=== PATIENT | female | born 1960 | race Caucasian/White ===

== ENCOUNTER 2023-11-05 23:22 | Emergency (ER) | payer OTHER, SELFPAY ==
[2023-11-05 23:22] VITALS: BMI 17.1
[2023-11-05 23:33] VITALS: BP 134/79
[2023-11-06 01:53] LABS: % Basophils 0.6 % (0-2); % Eosinophils 2.8 % (0-6); % Immature Granulocytes 0.2 % (0-0.5); % Monocytes 8.5 % (1.7-9.3); % Neutrophils 58.9 % (42.2-75.2); Absolute Eosinophils 0.2 10^3/uL (0-0.7); Absolute Lymphocytes 1.9 10^3/uL (1.2-3.4); Absolute Monocytes 0.6 10^3/uL (0.1-0.6); Absolute Neutrophils 3.8 10^3/uL (1.4-6.5); Hematocrit 38.7 % (37.0-47.0); Hemoglobin 13.6 g/dL (12.0-16.0); Mean Corp Hgb Conc. 35.1 g/dL (33.0-37.0); Mean Corpuscular Hgb 30.7 pg (27.0-31.0); Mean Corpuscular Volume 87.4 fL (81.0-99.0); Mean Platelet Volume 9.3 fL (7.4-10.4); Nucleated Red Blood Cells % 0 %; Platelet Count 253 10^3/uL (130-400); Red Blood Cell Count 4.43 10^6/uL (4.20-5.40); Red Cell Dist. Width 12.8 % (11.5-14.5); White Blood Cell Count 6.4 10^3/uL (4.8-10.8)
[2023-11-06 02:14] LABS: ALT (SGPT) 16 U/L (0-35); AST (SGOT) 25 U/L (14-36); Albumin 4.4 g/dl (3.5-5.0); Alkaline Phosphatase 71 U/L (38-126); Blood Urea Nitrogen 19 mg/dl (7-17); Calcium 9.5 mg/dl (8.4-10.2); Carbon Dioxide 25 mmol/L (22-30); Chloride 106 mmol/L (98-107); Glucose 103 mg/dl (70-99); Potassium 3.8 mmol/L (3.5-5.1); Sodium 143 mmol/L (135-145); Total Bilirubin 0.4 mg/dl (0.2-1.3); Total Protein 6.9 g/dl (6.3-8.2); eGFR > 60.00
[2023-11-06] MEDS: PROTONIX IV 40 MG IV (03:03)
[2023-11-06 03:04] LABS: Troponin I < 0.012 ng/ml
--- NOTE | 2023-11-06 03:25 | ED.GENMED ---
History of Present Illness
General
Chief Complaint: Chest Pain
Source: patient and previous hospital records
Exam Limitations: none
Time Seen by Provider: 11/06/23 02:27
Nursing documentation reviewed up to this point in time: agreed with
History of Present Illness
History of Present Illness:
This is a 63-year-old woman with history of migraine headaches, lumbar DJD, glaucoma and an episode of pneumonia in January 2023. Takes no medications on a daily basis other than eyedrops. She has been prescribed Robaxin by orthopedics,
[place] but admits to not taking this for low back pain.
She complains of 1 week history of waking each morning around 4:30 AM with acute epigastric to right upper quadrant pain accompanied with nausea without vomiting. She has not had a fever. She admits to decreased appetite but does not believe
abdominal pain is worse nor improved with meals. Occasional radiation of epigastric pain to her substernal area but she has not had a cough nor shortness of breath, no back pain, no palpitations, no dizziness nor lightheadedness. No history of
similar episodes in the past. She has had no diarrhea nor constipation, no dysuria and urgency and or hematuria.
She has been taking Excedrin sporadically throughout the week for pain prior to this week generally does not take [id number] pain medications. She denies significant NSAID use, denies EtOH use.
Past History
Past History
ED Past Medical History: Other (Glaucoma, lumbar DJD, pneumonia 2022, migraine headaches)
ED Past Surgical History: Appendectomy
Social History
Tobacco: Non-smoker
Alcohol: None
Drug: None
Personal: Other
Living: with family
Employment: Employed
Family History
Family History: Other (Noncontributory)
Phy Exam
Physical Exam
Physical Exam:
GENERAL: 63-year-old thin woman appears her stated age, awake and alert, appears mildly uncomfortable but easily communicative and cooperative.
EYE: pupils equal and reactive. anicteric
NECK: Supple, nontender, no meningismus, no significant adenopathy.
ENT: oral mucosa is minimally dry. No rhinorrhea.
CARDIAC: Regular rate and rhythm. no murmur.
LUNGS: Clear breath sounds bilaterally, no acute respiratory distress, no wheezes/rales/rhonchi
ABDOMEN: Soft, nondistended, mild tenderness epigastric as well as right upper quadrant, no r/g, no cvat. normoactive BS.
NEUROLOGICAL: Alert and oriented x3, no focal neuro deficits.
SKIN: Warm and dry, normal color, skin intact. No rash.
MUSCULOSKELETAL: No C/C/E. peripheral pulses are full and equal b/l. No palpable tenderness.
PSYCH: Normal and appropriate interaction.
Scores
Heart Score for Chest Pain Patients
STEMI patient?: No
History: Slightly or Non-Suspicious
ECG: Normal
Age: >45 - <65 years
Risk Factors: No Risk Factors
Troponin: </= Normal Limit
Heart Score for Chest Pain Patients: 1
Heart Score Risk: 2.5% MACE over next 6 weeks
Course
Orders/Labs/Results
Orders:
Orders
11/05/23 23:23
Electrocardiogram (*1) Urgent
Reason for Study: Chest Pain
EKG- Treatment ONCE
11/06/23 01:16
Electrocardiogram (*1) Urgent
Reason for Study: Chest Pain
Cardiac Monitoring- Treatment ONCE
EKG- Treatment ONCE
IV Insert/Care/Rem.- Treatment PRN
O2 Therapy [RESP] Urgent
Titrate/Wean O2 to maintain O2 sat greater than (%): 90
Special Instructions: Maintain sats >/=90%
Pulse Ox/spot Check [RESP] Urgent
Quantity: 1
Special Instructions: ON ROOM AIR
11/06/23 01:45
Complete Blood Count/With Diff Urgent
Comprehensive Metabolic Panel Urgent
Lipase Urgent
Comment: ADD ON
11/06/23 02:35
Troponin I Urgent
11/06/23 02:37
Add On- LAB Urgent
Tests Added?: lipase
11/06/23 02:54
Urinalysis Reflex To Culture Urgent
Pantoprazole [Protonix IV] 40 mg IV NOW STA
US Abdomen Complete/Upper Urgent
Comment:
Reason For Exam: 1 week hx epigastric RUQ pain
Abnormal Lab Results
11/06/23
01:45
BUN 19 H mg/dl
(7-17)
Glucose 103 H mg/dl
(70-99)
11/06/23 01:45
11/06/23 01:45
Vital Signs
Initial and Last Documented VS:
Initial Vital Signs
Temp Pulse Resp BP Pulse Ox
98.4 F 80 18 134/79 96
11/05/23 23:33 11/05/23 23:33 11/05/23 23:33 11/05/23 23:33 11/05/23 23:33
Last Documented Vital Signs
Temp Pulse Resp BP Pulse Ox
98.4 F 68 13 134/79 96
11/05/23 23:33 11/06/23 01:45 11/06/23 01:45 11/05/23 23:33 11/05/23 23:33
MDM/Problems Addressed
Differential Diagnosis Includes:
Concern for acute gastritis, biliary colic, cholecystitis, pancreatitis, GERD, ACS, diverticulitis, small bowel obstruction.
Thus far labs are unremarkable. Troponin is pending and will add lipase.
EKG shows normal sinus rhythm, minimally flipped T waves in lead III otherwise unremarkable.
No significant risk factors for CAD.
Will check abdominal ultrasound and will give an IV dose of Protonix.
Chronic conditions affecting care: Previous abdomnial surgery
*Radiology
Radiology exam reviewed: radiology read reviewed
*Pulse Oximetry
Patient hypoxic: no
*EKG
Interpreted by ED Provider?: Yes
Comparison EKG: changes noted (Previous T wave inversion laterally has since resolved)
Rate: normal
Rhythm: sinus
[place]: normal axis
Interval: normal interval
QRS Pattern: normal QRS
Ischemia: non-specific ST changes
*Heating Repair Technician Interpretation
Rate: normal
Interpretation: normal
Rhythm: sinus
*Critical Care Note
Total Time (30-74mins, 75-104mins- exclusive of procedures): Not Applicable
Update Note
Update Note:
11/06/2023 0432 AM
Patient reports complete relief of pain after IV Protonix.
Lipase is normal.
Troponin is negative. With ongoing primarily epigastric discomfort over the past week, negative troponin, ACS is unlikely.
Abdominal ultrasound is unremarkable.
I suspect an element of gastritis perhaps even peptic ulcer disease and she does admit that she has been taking Pepto-Bismol over the past several days with temporary relief of pain.
Will initiate daily Protonix and add Carafate for as needed pain.
Recommend bland diet, avoiding caffeine, spicy or fried foods. Continue to avoid alcohol as well as NSAIDs.
Prompt follow-up with PCP for recheck.
Return precautions discussed.
ED Attending Note
-
Portions of this chart may have been created with voice recognition software.� Occasional wrong word or��sound alike� substitutions may have occurred due to the inherent limitations of voice recognition software.
Discharge Plan
Departure
Patient Disposition: Home (Routine Discharge)
Date of Disposition: 11/06/23
Time of Disposition: 04:33
Patient with high blood pressure during this ER visit?: No
Condition: Good
Discharge Problem:
Acute gastritis
Instructions: [place] Diet, Gastritis (DC)
Prescriptions:
New
sucralfate [Carafate] 1 gram tablet
1 g PO QIDPRN PRN (Reason: upper abdominal pain) Qty: 60 0RF
pantoprazole [Protonix] 40 mg tablet,delayed release (DR/EC)
40 mg PO DAILY Qty: 30 0RF
No Action
doxycycline hyclate 100 mg capsule
100 mg PO BID Qty: 20 0RF
Referrals:
Cornell Valentine DO [Family Provider] - Call in 1-3 days for appt
Interventions
Interventions:
*Risk Screen - Suicide Last Done: 11/05/23 23:33
ED- Fall Risk Assessment Last Done: 11/06/23 02:00
ED- Cardiac Assessment Last Done: 11/06/23 02:00
Discharge Date and Time
Print Language: [place]EN[place]
[2023-11-06 03:44] LABS: Lipase 62 U/L (23-300)
[2023-11-06 04:50] VITALS: BP 112/64
[2023-11-06 04:53] VITALS: BP 112/64
== END 2023-11-06 04:54 | disposition home or self-care (01) ==
LOC: EMR 23:22
PROVIDERS: Student in an Organized Health Care Education/Training Program; EMERGENCY PHYSICIAN Emergency Medicine; FAMILY PHYSICIAN Family Medicine
DX: K29.00 Acute gastritis without bleeding (principal)
CPT/HCPCS: 99285; 96374; 76700; 80053; 83690; 84484; 85025; 93005